=== PATIENT | female | born 1960 | race African-American/Black ===

== ENCOUNTER 2021-09-13 13:03 | Inpatient (IN) | payer MEDICARE, MEDICAID ==
[~2021-09-13] VITALS: Ht 154.9 cm; Wt 97.1 kg
[2021-09-13] MEDS ORDERED: LORazepam 2MG/ML-1ML VIAL ONE (14:23)
[2021-09-13 14:26] LABS: Basophils # (auto) 0.1 10 ^3/uL (0-0.2); Basophils % (auto) 1.8 % (0.0-2.0); Eosinophils # (auto) 0.1 10 ^3/uL (0-0.8); Eosinophils % (auto) 1.6 % (0.0-7.0); Hematocrit 39.6 % (36.0-46.0); Hemoglobin 12.6 g/dL (12.2-16.2); Lymphocytes # (auto) 0.6 10 ^3/uL (0.4-5.4); Lymphocytes % (auto) 8.2 % (10.0-50.0); Mean Corpuscular Hemoglobin 27.8 pg (28.0-32.0); Mean Corpuscular Hgb Conc. 31.7 g/dL (32.0-36.0); Mean Corpuscular Volume 87.8 fL (80.0-100.0); Monocytes # (auto) 0.3 10 ^3/uL (0-1.3); Neutrophils # (auto) 6.6 10 ^3/uL (1.6-8.6); Neutrophils % (auto) 84.4 % (37.0-80.0); Nucleated Red Blood Cells % 0.1 %; Red Blood Cells 4.51 10^6/uL (4.0-5.20); Red Cell Distribution Width 15.4 % (11.8-14.3); White Blood Cell 7.9 10^3/uL (4.4-10.8)
[2021-09-13] MEDS ORDERED: LORazepam 2MG/ML-1ML VIAL IV ONE (14:30)
[2021-09-13 14:43] LABS: Albumin 3.3 g/dL (3.4-5.0); Calcium 8.8 mg/dL (8.5-10.1); Potassium 4.3 mmol/L (3.5-5.1)
[2021-09-13 14:46] LABS: BUN/Creatinine Ratio 12.3
[2021-09-13 14:49] LABS: Bilirubin, Total 0.3 mg/dL (0.2-1.0); Total Protein 7.4 g/dL (6.4-8.2)
[2021-09-13] MEDS ORDERED: ACETAMINOPHEN 325 MG TAB PO PRN (18:45)
[2021-09-13] MEDS ORDERED: LORazepam 2MG/ML-1ML VIAL IV PRN (18:45)
[2021-09-13] MEDS ORDERED: FOLIC ACID 1 MG TAB PO ONE (18:45)
[2021-09-13] MEDS ORDERED: THIAMINE HCL 100 MG TAB PO ONE (18:45)
[2021-09-13] MEDS ORDERED: ONDANSETRON HCL 4 MG/2 ML VIAL IV PRN (18:45)
[2021-09-13] MEDS ORDERED: LACTATED RINGER'S 1,000 ML IV ONE (19:00)
[2021-09-13 21:33] LABS: Alcohol, Urine < 3.0 mg/dL (0-10); Sodium Urine 179 mmol/L (40-220)
[2021-09-13 21:35] LABS: Amphetamine Screen, Urine NEGATIVE (NEGATIVE); Barbiturate Scree,Urine NEGATIVE (NEGATIVE); Benzodiazephine Screen, Urine NEGATIVE (NEGATIVE); Cannabinoid Screen, Urine NEGATIVE (NEGATIVE); Cocaine Screen, Urine NEGATIVE (NEGATIVE); Creatinine, Urine 120 mg/dL (30.0-125.0); Opiate Scree,Urine NEGATIVE (NEGATIVE); Phencyclidine Screen, Urine NEGATIVE (NEGATIVE)
[2021-09-13] MEDS: SODIUM CHLOR 0.9% PF (SALINE LOCK) 10ML VIAL/SYR IV SCH (22:50)
[2021-09-14] VITALS (7 sets, daily range): BP systolic 118–162; BP diastolic 76–100
[2021-09-14] MEDS: SODIUM CHLOR 0.9% PF (SALINE LOCK) 10ML VIAL/SYR IV SCH ×3 (06:05→22:18)
[2021-09-14] MEDS ORDERED: amLODIPine BESYLATE 5 MG TAB PO ONE (10:15)
[2021-09-14] MEDS ORDERED: SERTRALINE HCL 50 MG TAB PO ONE (10:15)
[2021-09-14] MEDS ORDERED: LEVE500T3 PO ×2 (10:48→10:56)
[2021-09-14] MEDS ORDERED: HYDR25TA87 PO ×2 (10:48→10:56)
[2021-09-14] MEDS ORDERED: ARIP30TA22 (10:48)
[2021-09-14] MEDS ORDERED: SERT-160 PO ×2 (10:48→10:56)
[2021-09-14] MEDS ORDERED: GABA300C10 PO ×2 (10:48→10:56)
[2021-09-14] MEDS ORDERED: FEXO-47 (10:48)
[2021-09-14] MEDS ORDERED: ASPI81CH59 PO (10:56)
[2021-09-14] MEDS ORDERED: FEXO1TAB12 PO (10:56)
[2021-09-14] MEDS ORDERED: ARIP1TAB63 PO (10:56)
[2021-09-14] MEDS ORDERED: levETIRAcetam 500 MG TAB PO SCH ×2 (20:45→22:00)
[2021-09-14] MEDS: levETIRAcetam 500 MG TAB PO SCH (22:18)
[2021-09-15 04:35] VITALS: BP 157/109
[2021-09-15 05:40] VITALS: BP 146/90
[2021-09-15] MEDS: SODIUM CHLOR 0.9% PF (SALINE LOCK) 10ML VIAL/SYR IV SCH ×2 (06:04→14:20)
[2021-09-15 06:09] LABS: BUN/Creatinine Ratio 12.8; Calcium 8.7 mg/dL (8.5-10.1); Potassium 3.7 mmol/L (3.5-5.1)
[2021-09-15 08:00] VITALS: BP 139/79
[2021-09-15] MEDS: levETIRAcetam 500 MG TAB PO SCH (09:18)
[2021-09-15] MEDS ORDERED: amLODIPine BESYLATE 5 MG TAB PO SCH (10:00)
[2021-09-15] MEDS ORDERED: SERTRALINE HCL 50 MG TAB PO SCH (10:00)
[2021-09-15] MEDS ORDERED: KEP500T PO (10:20)
[2021-09-15 12:00] VITALS: BP 153/80
[2021-09-15 12:41] VITALS: BP 140/80
== END 2021-09-15 15:00 | disposition home or self-care (01) | DRG 101 ==
LOC: ER 13:03 → EDBD 13:03 → TELE 18:36 → TELE-CENTR 09-14 03:39 → CENTRAL 09-14 10:41
PROVIDERS: ADMIT Internal Medicine; ATTEND Internal Medicine
DX: G40.401 Other generalized epilepsy and epileptic syndromes, not intractable, with status epilepticus (principal); Z68.41 Body mass index [BMI] 40.0-44.9, adult; N17.9 Acute kidney failure, unspecified; Z20.822 Contact with and (suspected) exposure to COVID-19; E66.01 Morbid (severe) obesity due to excess calories; E78.5 Hyperlipidemia, unspecified; F32.9 Major depressive disorder, single episode, unspecified; I10 Essential (primary) hypertension; Z79.899 Other long term (current) drug therapy; Z83.3 Family history of diabetes mellitus; Z85.819 Personal history of malignant neoplasm of unspecified site of lip, oral cavity, and pharynx; Z85.850 Personal history of malignant neoplasm of thyroid
CPT/HCPCS: 36415; 70450; 71045; 80048; 80053; 80307; 80320; 82570; 84300; 85025; 93005; 95819; 96361; 96365; 96375; G0378; J7060